=== PATIENT | male | born 1970 | race Hispanic/Latino ===

== ENCOUNTER 2018-10-02 17:26 | Emergency (ER) | payer BC ==
[2018-10-02 17:41] VITALS: O2SAT 97
--- NOTE | 2018-10-02 18:21 | C.PDOC ---
History Of Present Illness 47 y/o male with a PMHx of A Fib, unknown anticoagulant use, comes in for evaluation of bleeding wound to left lower leg. Patient reports itching his stephani this morning, now the area has developed a slow bleed from the left lower leg. States he was unable to stop the bleeding at home, prompting this ED visit. Otherwise he denies any SOB, dizziness, weakness, or other complaints. Time Seen by Provider: 10/02/18 18:18 Chief Complaint (Nursing): Abnormal Skin Integrity History Per: Patient History/Exam Limitations: no limitations Onset/Duration Of Symptoms: Hrs Current Symptoms Are (Timing): Still Present Past Medical History Reviewed: Historical Data, Nursing Documentation, Vital Signs Vital Signs: Last Vital Signs Temp 98.5 F 10/02/18 17:36 Pulse 110 H 10/02/18 17:36 Resp 20 10/02/18 17:36 BP 109/73 10/02/18 17:36 Pulse Ox 97 10/02/18 17:36 - Medical History PMH: Atrial Fibrillation Surgical History: Endoscopy Family History: States: No Known Family Hx - Social History Hx Alcohol Use: No Hx Substance Use: No - Immunization History Hx Tetanus Toxoid Vaccination: No Hx Influenza Vaccination: Yes Hx Pneumococcal Vaccination: No Review Of Systems Constitutional: Negative for: Fever, Chills Cardiovascular: Negative for: Light Headedness Respiratory: Negative for: Shortness of Breath Skin: Positive for: Other (+ bleed from left leg wound) Neurological: Negative for: Headache, Dizziness Physical Exam - Physical Exam Appears: Non-toxic, No Acute Distress Skin: Warm, Dry Head: Atraumatic, Normacephalic Eye(s): bilateral: Normal Inspection Neck: Normal ROM Chest: Symmetrical Respiratory: No Accessory Muscle Use, Other (no respiratory distress) Extremity: Normal ROM, No Calf Tenderness, No Swelling, Other (Nodule to left lower leg with minimal active bleeding; No surrounding erythema) Pulses: Left Dorsalis Pedis: Normal, Right Dorsalis Pedis: Normal Neurological/Psych: Oriented x3, Normal Speech Gait: Steady ED Course And Treatment O2 Sat by Pulse Oximetry: 97 (RA) Pulse Ox Interpretation: Normal Medical Decision Making Medical Decision Making: Plan: Hemostasis achieved with chemical cautery Mother at bedside states patient is on xarelto. no need to check pt ptt Patient observed in the ED with no active bleeding, plan is to discharge home. Disposition Counseled Patient/Family Regarding: Diagnosis, Need For Followup - Disposition Disposition: HOME/ ROUTINE Disposition Time: 18:41 Condition: STABLE Additional Instructions: return to er with worsening symptoms or concerns. Instructions: Skin Abrasions, Bleeding Precautions Forms: [facility] ([facility]) - POA Present On Arrival: None - Clinical Impression Clinical Impression: Skin hemorrhages - Scribe Statement The provider has reviewed the documentation as recorded by the Amanda Heart Provider Attestation: All medical record entries made by the Amanda were at my direction and personally dictated by me. I have reviewed the chart and agree that the record accurately reflects my personal performance of the history, physical exam, medical decision making, and the department course for this patient. I have also personally directed, reviewed, and agree with the discharge instructions and disposition.
[2018-10-02] MEDS ORDERED: Silver Nitrate Topical - Stick ONE (18:24)
[2018-10-02 19:11] VITALS: BP 115/78; PULSE 98; RESP 19; TEMP 97.9
== END 2018-10-02 19:13 | disposition home or self-care (01) ==
LOC: C.ER 17:26
DX: S80.922A Unspecified superficial injury of left lower leg, initial encounter (principal); X58.XXXA Exposure to other specified factors, initial encounter; I48.91 Unspecified atrial fibrillation; Z79.01 Long term (current) use of anticoagulants